=== PATIENT | female | born 1940 | race Caucasian/White ===

== ENCOUNTER 2017-02-20 07:56 | Observation (INO) | payer OTHER ==
[~2017-02-20] VITALS: Ht 154.9 cm; Wt 53.9 kg
[2017-02-20 08:32] LABS: EOSINOPHIL (%) 2.2 % (0-5); EOSINOPHIL COUNT 0.2 K/uL (0-0.3); HEMATOCRIT 41.4 % (36.0-46.0); IMMATURE GRANULOCYTE (%) 0.3 % (0.0-0.7); INSTRUMENT ABS NEUTROPHIL CT 7.1 K/uL; LYMPHOCYTE COUNT 0.7 K/uL (1.0-2.8); MCH 30.5 PG (29.0-34.0); MCHC 33.6 G/DL (30.0-36.0); MCV 90.8 FL (83-99); MEAN PLAT.VOLUME 10.5 uM^3 (9.5-12.4); MONOCYTE (%) 7.5 % (3-12); MONOCYTE COUNT 0.7 K/uL (0-0.8); NEUTROPHIL (%) 81.1 % (45-76); NEUTROPHIL COUNT 7.1 K/uL (1.8-6.4); PLATELET COUNT 239 K/uL (156-360); RBC DIS.WIDTH-CV 12.4 % (11.8-14.6); RBC DIS.WIDTH-SD 40.9 % (39-53); RED BLOOD COUNT 4.56 M/uL (3.80-5.20); WHITE BLOOD COUNT 8.7 K/uL (4.1-10.2)
[2017-02-20 08:40] LABS: CHLORIDE 97 mEq/L (99-109); POTASSIUM 4.1 mEq/L (3.7-5.4); SODIUM 134 mEq/L (136-147)
[2017-02-20 08:41] LABS: PROTHROMBIN TIME 10.2 (9.2-11.2)
[2017-02-20 08:42] LABS: GLUCOSE 112 mg/dL (70-99)
[2017-02-20 08:44] LABS: ANION GAP 9 MEQ/L (2-14)
[2017-02-20 08:46] LABS: GFR ESTIMATE (CALCULATED) > 59 mL/min/
[2017-02-20 08:47] LABS: UREA NITROGEN (BUN) 12 mg/dL (9-23)
[2017-02-20 08:52] LABS: TROP-I INTERPRETATION NEGATIVE; TROPONIN-I < 0.01 ng/mL (0.0-0.30)
[2017-02-20] MEDS ORDERED: SIMVASTATIN20 MG PO (10:19)
[2017-02-20] MEDS ORDERED: ESTRADIOL0.5 MG PO (10:19)
[2017-02-20] MEDS ORDERED: FISH OIL 1,0001 EAC7 PO (10:20)
[2017-02-20] MEDS ORDERED: MULTI VITAMIN1 EACH PO (10:20)
[2017-02-20] MEDS ORDERED: CEPHALEXIN500 MG PO (10:20)
[2017-02-20] MEDS ORDERED: OSTEO BI-FLEX1 EAC1 PO (10:21)
[2017-02-20] MEDS ORDERED: ASPIR-LOW81 MG PO (10:21)
[2017-02-20] MEDS ORDERED: FLONASE16 G1 BOTH NARES (10:21)
[2017-02-20] MEDS ORDERED: ZYRTEC10 M3 PO (10:22)
[2017-02-20 11:27] VITALS: BP 157/74
[2017-02-20 13:15] LABS: HDL CHOLESTEROL 89 MG/DL (Desirable>=50); LDL CHOLESTEROL 84 mg/dL (Desirable<100); NON-HDL CHOLESTEROL 105 mg/dL (Desirable<160); SAMPLE HEMOLYSIS CHECK 0; SAMPLE ICTERIC CHECK 0; SAMPLE LIPEMIA CHECK 0; TOTAL CHOLESTEROL 194 mg/dL (Desirable<200); TRIGLYCERIDES 105 MG/DL (Normal: <150)
[2017-02-20 13:18] LABS: Estimated Average Glucose 131 mg/dL (70-123); HEMOGLOBIN A1c (GLYCOHEMOGLOB) 6.2 % HGB (Below 5.7)
[2017-02-20 15:50] VITALS: BP 182/79
[2017-02-20 16:34] LABS: TROP-I INTERPRETATION NEGATIVE; TROPONIN-I < 0.01 ng/mL (0.0-0.30)
[2017-02-20 18:50] VITALS: BP 162/72
[2017-02-20 20:40] LABS: TROP-I INTERPRETATION NEGATIVE; TROPONIN-I < 0.01 ng/mL (0.0-0.30)
[2017-02-20 23:00] VITALS: BP 144/71
[2017-02-21 03:00] VITALS: BP 144/67
[2017-02-21 07:36] VITALS: BP 142/71
== END 2017-02-21 11:51 | disposition home or self-care (01) ==
LOC: EME → EDBD 07:56 → EME 07:56 → 5WEST 10:23 → EDOF 10:23 → 5WEST 11:21
PROVIDERS: Emergency Medicine; Internal Medicine
DX: G45.9 Transient cerebral ischemic attack, unspecified (principal); S81.011D Laceration without foreign body, right knee, subsequent encounter; E78.5 Hyperlipidemia, unspecified; Z91.81 History of falling; Z88.2 Allergy status to sulfonamides
CPT/HCPCS: 70450; 70551; 71010; 73030; 80048; 80061; 83036; 84443; 84484; 85025; 85610; 85730; 93005; 93306; 93880; 99281; 99285; G0378; J1650